=== PATIENT | male | born 1965 | race Caucasian/White ===

== ENCOUNTER 2021-08-18 18:45 | Emergency (ER) | payer OTHER, MEDICAID ==
[~2021-08-18] VITALS: Ht 180.3 cm; Wt 136.1 kg
[2021-08-18 18:55] VITALS: BP_SYST 165
--- NOTE | 2021-08-18 18:55 | NUR ---
Pt to remain in the ER lobby until ER bed becomes available.
--- NOTE | 2021-08-18 19:48 | NUR ---
Patient to ER bed 7 to gown for evaluation. Side rails up. Report given to MAXIM CARMONA .
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
--- NOTE | 2021-08-18 20:56 | NUR ---
TECH AT THE BEDSIDE FOR ULTRASOUND, MALE STAFF PRESENT
--- NOTE | 2021-08-18 21:33 | NUR ---
PT REPORTS EXPERIENCING MILD ANXIETY AND IS PACING IN HALLWAY. PT IS CALM, AWAIITNG DISPOSITION
[2021-08-18] MEDS ORDERED: CEPH250C PO (21:39)
[2021-08-18 21:53] VITALS: BP_SYST 136
== END 2021-08-18 21:33 | disposition home or self-care (01) ==
LOC: SED 18:45
DX: N49.2 Inflammatory disorders of scrotum (principal); N43.3 Hydrocele, unspecified; E11.9 Type 2 diabetes mellitus without complications; I10 Essential (primary) hypertension
CPT/HCPCS: 76870-TC; 99284